=== PATIENT | male | born 1940 | race Caucasian/White ===

== ENCOUNTER → 2018-01-07 | Outpatient (CLI) | payer MEDICARE, BC ==
[~2018-01-07] MED LIST: ALB6.7R INH; ALBU8.5H IH; AMLO-96 PO; AMLO2.5T74 PO; ASPI81TA94 PO; BUDE10.2 INH; BUDE10.25 IH; CALC-901 PO; CALC250T7 PO; CHOL10005 PO; CHOL100059 PO; FAMO20TA28 PO; FLU IM; FLU45SYR17 IM; FLU45SYR25 IM ONLY; FLU60SYR30 IM ONLY; FOLI0.4T56 PO; GLIM2TAB43 PO; HYDR-318 PO; IBUP800T37 PO; KETO120S13 TP; LEVO500T83 PO; LORA-788 PO; LOSA-54 PO; METF-411 PO; METF500T4 PO; METXR500 PO; MULT1CAP59 PO; OMEG-11 PO; OMEP-137 PO; SIMV10TA98 PO; SIMV5TAB60 PO; SULF15DR26 OP; SULF500T48 PO
[2018-01-07 11:24] LABS: PLATELET COUNT, AUTOMATED 245 K/uL (150-450)
== END ==
LOC: LAB 10:10
PROVIDERS: ATTEND Nurse Practitioner Family
DX: Z12.5 Encounter for screening for malignant neoplasm of prostate (principal); E78.00 Pure hypercholesterolemia, unspecified; E11.9 Type 2 diabetes mellitus without complications; I10 Essential (primary) hypertension
CPT/HCPCS: 36415; 82040; 82247; 82310; 82374; 82435; 82465; 82565; 82947; 83036; 83718; 84075; 84132; 84155; 84295; 84443; 84450; 84460; 84478; 84520; 85025

== ENCOUNTER → 2018-01-11 | Outpatient (CLI) | payer MEDICARE, BC | LOC: LAB 13:50 | PROVIDERS: ATTEND Nurse Practitioner Family | DX: E83.52 Hypercalcemia (principal) | CPT/HCPCS: 36415; 82306; 83970 ==

== ENCOUNTER → 2018-01-13 | Outpatient (CLI) | payer MEDICARE, BC | LOC: LAB 15:54 | PROVIDERS: ATTEND Nurse Practitioner Family | DX: E83.52 Hypercalcemia (principal) | CPT/HCPCS: 36415; 82330; 83519 ==

== ENCOUNTER → 2018-07-06 | Outpatient (CLI) | payer MEDICARE, BC ==
[~2018-07-06] MED LIST changes: +AMLO-111 PO; -AMLO-96 PO; -AMLO2.5T74 PO; +AMLO2.5T76 PO; +FLU180SY11 IM; -KETO120S13 TP; +KETO120S14 TP; -METF-411 PO; +METF-450 PO
[2018-07-06 09:39] LABS: PLATELET COUNT, AUTOMATED 238 K/uL (150-450)
== END ==
LOC: LAB 09:20
PROVIDERS: ATTEND Nurse Practitioner Family
DX: E11.9 Type 2 diabetes mellitus without complications (principal); I10 Essential (primary) hypertension; K51.90 Ulcerative colitis, unspecified, without complications
CPT/HCPCS: 36415; 82040; 82247; 82310; 82374; 82435; 82565; 82947; 83036; 84075; 84132; 84155; 84295; 84443; 84450; 84460; 84520; 85025

== ENCOUNTER → 2019-01-28 | Outpatient (CLI) | payer MEDICARE, BC ==
[~2019-01-28] MED LIST changes: -AMLO-111 PO; +AMLO-125 PO; -AMLO2.5T76 PO; +AMLO2.5T78 PO; -SIMV5TAB60 PO; +SIMV5TAB69 PO; +TRIA15OI20 TP; +VARI50KI IM
[2019-01-28 10:20] LABS: PLATELET COUNT, AUTOMATED 224 K/uL (150-450)
== END ==
LOC: LAB 09:22
PROVIDERS: ATTEND Nurse Practitioner Family
DX: E78.00 Pure hypercholesterolemia, unspecified (principal); E11.9 Type 2 diabetes mellitus without complications; I10 Essential (primary) hypertension
CPT/HCPCS: 36415; 82040; 82247; 82310; 82374; 82435; 82465; 82565; 82947; 83036; 83718; 84075; 84132; 84155; 84295; 84443; 84450; 84460; 84478; 84520; 85025